=== PATIENT | male | born 1965 | race Caucasian/White ===

== ENCOUNTER 2023-11-29 07:38 | Emergency (ER) | payer SELFPAY | END 2023-11-29 09:15 | disposition home or self-care (01) | LOC: JD.ED 07:38 | DX: S39.012A Strain of muscle, fascia and tendon of lower back, initial encounter (principal); S89.91XA Unspecified injury of right lower leg, initial encounter; Z79.899 Other long term (current) drug therapy; X50.0XXA Overexertion from strenuous movement or load, initial encounter | CPT/HCPCS: 72100; 72100-26; 73562-26-RT; 73562-RT; 99283 ==